=== PATIENT | female | born 1990 | race Caucasian/White ===

== ENCOUNTER 2016-12-28 14:04 | Emergency (ER) | payer MEDICAID, OTHER ==
[~2016-12-28] VITALS: Ht 162.6 cm; Wt 60.0 kg
[2016-12-28 14:08] VITALS: Ht 162.6 cm; Wt 60.0 kg
[2016-12-28] MEDS ORDERED: SOD CHLORIDE 0.9% 1,000 ML IV STA (14:46)
[2016-12-28] MEDS ORDERED: ONDANSETRON 4 MG INJ IV STA (14:46)
--- NOTE | 2016-12-28 14:57 | ERD ---
ER Documentation Chief Complaint Date/Time DATE: 12/28/16 TIME: 14:51 Chief Complaint NAUSEA /VOMITING SINCE MORNING , HAD ALCOHOL LAST NIGHT HPI 26 year old female presents to the ED with nausea and vomiting status post drinking a lot of alcohol last night. Denies fever, abdominal pain. ROS All systems reviewed and are negative except as per history of present illness. Physical Exam Vitals Vital Signs Date Time Temp Pulse Resp B/P Pulse Ox O2 Delivery O2 Flow Rate FiO2 12/28/16 14:08 97.6 88 18 130/87 100 Physical Exam Const: WDWN Head: Atraumatic Eyes: Normal Conjunctiva ENT: Normal External Ears, Nose and Mouth. Neck: Full range of motion..~ No meningismus. Resp: Clear to auscultation bilaterally Cardio: Regular rate and rhythm, no murmurs Abd: Soft, non tender, non distended. Normal bowel sounds Skin: No petechiae or rashes Back: No midline or flank tenderness Ext: No cyanosis, or edema Neur: Awake and alert Psych: Normal Mood and Affect Results 24 hrs Current Medications Medications (Trade) Dose Ordered Sig/Nadya Route PRN Reason Start Time Stop Time Status Last Admin Dose Admin Sodium Chloride (NS) 1,000 ml @ 1,000 mls/hr Q1H STAT IV 12/28/16 14:46 12/28/16 15:45 Ondansetron HCl (Zofran Inj) 8 mg ONCE STAT IV 12/28/16 14:46 12/28/16 14:48 DC Procedures/MDM 26 year old female presents to the emergency department with nausea and vomiting status post drinking a lot of alcohol last night. Patient has stable vital signs and appropriate to be discharged home. In the ED, IV access was established. Patient was given 1 liter of fluids and Zofran, she had some improvement in symptoms. Prescription for Zofran was provided. Return precautions were given Departure Diagnosis: Primary Impression: Nausea and vomiting Condition: Stable TROY OGDEN PA-C Dec 28, 2016 14:57
[2016-12-28] MEDS ORDERED: ONDA8TAB14 PO (15:24)
[2016-12-28 16:15] VITALS: BP 131/94; PULSE 98; RESP 16; TEMP 98.6
== END 2016-12-28 16:17 | disposition home or self-care (01) ==
LOC: FTE 14:04
DX: R11.2 Nausea with vomiting, unspecified (principal)
CPT/HCPCS: 96374; J2405; J7030; Z7502

== ENCOUNTER 2018-05-29 01:01 | Emergency (ER) | payer MEDICAID, OTHER ==
[~2018-05-29] VITALS: Ht 165.1 cm; Wt 65.7 kg
[~2018-05-29 01:01] MED LIST: ONDA8TAB14 PO
[2018-05-29 01:06] VITALS: Ht 165.1 cm; Wt 65.7 kg
--- NOTE | 2018-05-29 04:49 | ERD ---
ER Documentation Chief Complaint Chief Complaint ANXIETY AND HEAD NUMBNESS X TODAY HPI This is a 28-year-old female with a history of hypothyroidism and anxiety who presents to the ER today for evaluation of heart palpitations, and numbness and tingling around her mouth and in her right upper and left upper extremity. The patient states that she woke up from sleep and felt the symptoms. She does states she has been on a lot of stress recently. She states that she came to the ER for evaluation. The patient currently states that her symptoms have resolved since being in the emergency room. She has no complaints of fever, n ausea, vomiting or shortness of breath at this time ROS All systems reviewed and are negative except as per history of present illness. Medications Home Meds Active Scripts Ondansetron (Ondansetron Odt) 8 Mg Tab.rapdis, 8 MG PO Q6H PRN for NAUSEA AND/OR VOMITING, #10 TAB Prov:TROY OGDEN PA-C 12/28/16 PMhx/Soc Medical and Surgical Hx: pt denies Surgical Hx Hx Miscellaneous Medical Probl: Yes (anemia, hypothyroidism) Hx Alcohol Use: Yes Hx Substance Use: No Hx Tobacco Use: No Smoking Status: Never smoker Physical Exam Vitals Vital Signs Date Temp Pulse Resp B/P (MAP) Pulse Ox O2 O2 Flow FiO2 Time Delivery Rate 05/29/18 96 17 100 Room Air 03:45 05/29/18 97.6 132 30 152/97 100 01:06 (115) Physical Exam Const: No acute distress Head: Atraumatic Eyes: Normal Conjunctiva ENT: Normal External Ears, Nose and Mouth. Neck: Full range of motion. No meningismus. Resp: Clear to auscultation bilaterally Cardio: Regular rate and rhythm, no murmurs Abd: Soft, non tender, non distended. Normal bowel sounds Skin: No petechiae or rashes Back: No midline or flank tenderness Ext: No cyanosis, or edema Neur: Awake and alert Psych: Anxious affect Result Diagram: 05/29/18 0358 05/29/18 0358 Results 24 hrs Laboratory Tests Test 05/29/18 03:51 05/29/18 03:53 05/29/18 03:58 Bedside Urine pH (LAB) 7.0 Bedside Urine Protein (LAB) Negative Bedside Urine Glucose (UA) Negative Bedside Urine Ketones (LAB) Negative Bedside Urine Blood Trace-intact Bedside Urine Nitrite (LAB) Negative Bedside Urine Leukocyte Esterase Negative (L POC Beta HCG, Qualitative NEGATIVE White Blood Count 9.1 10^3/ul Red Blood Count 5.03 10^6/ul Hemoglobin 13.6 g/dl Hematocrit 41.9 % Mean Corpuscular Volume 83.3 fl Mean Corpuscular Hemoglobin 27.0 pg Mean Corpuscular 32.5 g/dl Hemoglobin Concent Red Cell Distribution Width 23.4 % Platelet Count 263 10^3/UL Mean Platelet Volume 8.9 fl Immature Granulocytes % 0.400 % Neutrophils % 56.6 % Lymphocytes % 29.4 % Monocytes % 13.1 % Eosinophils % 0.2 % Basophils % 0.3 % Nucleated Red Blood Cells % 0.0 /100WBC Immature Granulocytes # 0.040 10^3/ul Neutrophils # 5.2 10^3/ul Lymphocytes # 2.7 10^3/ul Monocytes # 1.2 10^3/ul Eosinophils # 0.0 10^3/ul Basophils # 0.0 10^3/ul Nucleated Red Blood Cells # 0.0 10^3/ul Sodium Level 143 mmol/L Potassium Level 3.6 mmol/L Chloride Level 108 mmol/L Carbon Dioxide Level 25 mmol/L Anion Gap 10 Blood Urea Nitrogen 12 mg/dl Creatinine 0.57 mg/dl Est Glomerular Filtrat Rate mL/min > 60 mL/min Glucose Level 86 mg/dl Calcium Level 9.3 mg/dl Troponin I < 0.012 ng/ml Procedures/MDM EKG: #1 Rate/Rhythm: Sinus tachycardia QRS, ST, T-waves: [No changes consistent w/ acute ischemia] Impression: [No evidence of ischemia or arrhythmia] EKG: #2 Rate/Rhythm: [Normal Sinus Rhythm] QRS, ST, T-waves: [No changes consistent w/ acute ischemia] Impression: [No evidence of ischemia or arrhythmia] Chest X-ray 1V Interpreted by me: Soft Tissue: No acute abnormalities Bones: No acute abnormalities Mediastinum/Cardiac Silhouette/Lungs: [No acute abnormalities] This 28-year-old female presents to the ER for evaluation of heart palpitations, paresthesias. The patient does states she has been under a lot of stress recently and on my exam the patient did appear to be slightly anxious. The patient had an EKG which did show sinus tachycardia however repeat EKG in the ER shows normal sinus rhythm. The patient's chest x-ray is clear, troponin is negative. She has a heart score of 0 at this time with a low risk of M YADI. I do believe this patient suffering from anxiety and will be discharged at this time with strict return precautions. Departure Diagnosis: Primary Impression: Anxiety Additional Impression: Paresthesias Condition: Stable HERNANDO WARE DO May 29, 2018 04:48
[2018-05-29 05:22] VITALS: BP 138/100; PULSE 98; RESP 18
[2018-05-29] MEDS ORDERED: LEVO25TA6 PO (05:24)
[2018-05-29] MEDS ORDERED: LEVO50TA7 PO (05:24)
[2018-05-29] MEDS ORDERED: FER325 PO (05:24)
== END 2018-05-29 05:24 | disposition home or self-care (01) ==
LOC: E/R 01:01
DX: F41.9 Anxiety disorder, unspecified (principal); R40.2142 Coma scale, eyes open, spontaneous, at arrival to emergency department; R20.2 Paresthesia of skin; R40.2362 Coma scale, best motor response, obeys commands, at arrival to emergency department; R40.2252 Coma scale, best verbal response, oriented, at arrival to emergency department; E03.9 Hypothyroidism, unspecified; R07.9 Chest pain, unspecified
CPT/HCPCS: 36415; 71045; 80048; 81003; 81025; 84484; 85025; 93005